=== PATIENT | female | born 2000 | race African-American/Black ===

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

== ENCOUNTER 2025-07-22 16:58 | Emergency (ER) | payer OTHER, MEDICAID ==
[~2025-07-22] VITALS: Ht 162.6 cm; Wt 75.0 kg
[~2025-07-22 16:58] MED LIST: IBUP-2028 PO
[2025-07-22 17:03] VITALS: TEMP 36.9; O2SAT 97
[2025-07-22] MEDS: CYCLOBENZAPRINE 10MG TABLET PO ONE (19:35)
[2025-07-22] MEDS: KETOROLAC 15MG/ML VIAL IM ONE (19:35)
[2025-07-22] MEDS: LIDOCAINE 5% PATCH TOP SCH (19:36)
[2025-07-22] MEDS ORDERED: LIDO700A30 TP (19:49)
[2025-07-22] MEDS ORDERED: TOPUD MT (19:49)
[2025-07-22] MEDS ORDERED: IBUP-2028 MT (19:49)
[2025-07-22 20:07] VITALS: BP 123/78; PULSE 81; RESP 12; O2SAT 100
== END 2025-07-22 20:08 | disposition home or self-care (01) ==
LOC: ER 16:58
DX: S16.1XXA Strain of muscle, fascia and tendon at neck level, initial encounter (principal); M25.512 Pain in left shoulder; Z79.1 Long term (current) use of non-steroidal anti-inflammatories (NSAID); X58.XXXA Exposure to other specified factors, initial encounter; Y93.89 Activity, other specified; Y92.410 Unspecified street and highway as the place of occurrence of the external cause; Y99.8 Other external cause status
CPT/HCPCS: 99285; 72125; 71045; 81025; 73030; 96372; J1885